=== PATIENT | female | born 2000 | race Caucasian/White ===

== ENCOUNTER 2020-09-02 20:48 | Emergency (ER) | payer BC ==
[2020-09-02] MEDS ORDERED: Sodium Chloride 0.9% 1,000 ML IV ONE (21:29)
--- NOTE | 2020-09-02 21:52 | EDM.PDOC ---
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 Patient denies any recent fevers, shakes, chills, nausea, vomiting, diarrhea, dysuria, frequency, urgency. Patient reports that with her prior she did have a miscarriage and had similar symptoms and was concerned that she might be experiencing another miscarriage. Patient denies any vaginal bleeding or vaginal discharge. Patient denies any melena or bright red blood per rectum. Review of systems: As per history of present illness and below otherwise all systems reviewed and negative. Past medical history: As per history of present illness and as reviewed below otherwise noncontributory. Surgical history: As per history of present illness and as reviewed below otherwise noncontributory. Social history: No reported history of drug or alcohol abuse. Family history: As per history of present illness and as reviewed below otherwise noncontributory. Physical exam: This patient was seen and evaluated during the 2019 SARS-CoV-2 novel coronavirus pandemic period. Community viral transmission is ongoing at time of this encounter and the emergency department is operating under pandemic response procedures. Constitutional: Patient is oriented to person, place, and time. Appears well- developed and well-nourished. No distress. HEENT: Moist mucous membranes Head: Normocephalic and atraumatic Eyes: Right eye exhibits no discharge. Left eye exhibits no discharge. No scleral icterus Neck: Normal range of motion. No tracheal deviation present. Cardiovascular: Normal rate and regular rhythm. Pulmonary: Effort normal, no respiratory distress. Abd: Soft, nondistended, no rebound/guarding, no psoas or obturator signs, no tenderness at Mcberney's point, no Goetz's sign. Pt does not present with an exam that would be consistent with an acute surgical abdomen at this time, mild tenderness to palpation left lower quadrant and suprapubic region. Musculoskeletal: Normal range of motion Neurologic: Alert and oriented to person, place and time. Skin: [place], warm and dry. Psychiatric: Normal mood and affect. Behavior is normal. Judgment and thought content normal. Nursing note and vital signs have been reviewed Pelvic: Diagnostics: CBC, CMP, Rh, ultrasound Ultrasound reveals: No intrauterine gestation seen. 2.2 cm left adnexal lesion at the margin of the left ovary. Differential diagnosis includes ectopic or exophytic corpus luteal cyst. Small amount of free fluid no evidence of hemorrhagic fluid per radiology. Beta hCG equals 49 Therapeutics: Assessment and plan: 19-year-old female presents ER today secondary to left lower quadrant abdominal pain/cramping. Patient is approximately 5 weeks by date. Patient reports that she took 3 tests in the last 24 hours and they were all positive. Patient has no current vaginal bleeding. Patient appears clinically and hemodynamically stable and does not appear to be in any acute distress. 11:33 PM: Lab reports reviewed and ultrasound reviewed by me. I have discussed the results with the patient including the possibility of an early versus viable versus miscarriage versus threatened AB versus ectopic . At this time patient is clinically hemodynamically stable and will need to follow-up as an outpatient for repeat beta hCG and ultrasounds. I have discussed with the patient the need to return immediately if she starts developing any increasing pain or discomfort in her left lower quadrant, increased dizziness, nausea, vomiting or any other new or concerning symptoms. We will assist with obtaining appointment for the patient with [facility]. Reassessment at the time of disposition demonstrates that the patient is in no acute distress. The patient has remained stable throughout the entire ED visit and is without objective evidence for acute process requiring urgent intervention or hospitalization. The patient is stable for discharge, counseling is provided as documented above, discussed symptomatic treatment and specific conditions for return. I have spoken with the patient/caregiver and discussed todays findings, in addition to providing specific details for the plan of care. Questions are answered and there is agreement with the plan. Definitive disposition and diagnosis as appropriate pending reevaluation and review of above. Lower Abdomen Pain Score (Numeric/FACES): 8 - Related Data Allergies Allergy/AdvReac Type Severity Reaction Status Date / Time No Known Allergies Allergy Verified 09/02/20 21:02 Home Meds: Home Meds . 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 Musculoskeletal History: Reports: None Neurological History: Reports: None Psychiatric History: Reports: None Endocrine/Metabolic History: Reports: None Hematologic History: Reports: None Immunologic History: Reports: None Oncologic (Cancer) History: Reports: None Dermatologic History: Reports: None - Past Surgical History Head Surgeries/Procedures: Reports: None HEENT Surgical History: Reports: None GI Surgical History: Reports: None Endocrine Surgical History: Reports: None Neurological Surgical History: Reports: None Musculoskeletal Surgical History: Reports: None Dermatological Surgical History: Reports: None Social & Family History - Family History Family Medical History: No Pertinent Family History - Tobacco Use Tobacco Use Status *Q: Never Tobacco User - Recreational Drug Use Recreational Drug Use: No ED ROS GENERAL - Review of Systems Review Of Systems: See Below ED EXAM, GENERAL - Physical Exam Exam: See Below Course - Vital Signs Last Recorded V/S: Last Vital Signs Temp 97.3 F 09/02/20 22:19 Pulse 78 09/02/20 22:19 Resp 16 09/02/20 22:19 BP 128/72 09/02/20 22:19 Pulse Ox 98 09/02/20 22:19 - Orders/Labs/Meds Labs: Laboratory Tests 09/02/20 09/02/20 09/02/20 Range/Units 21:50 21:53 21:53 WBC 10.26 (4.0-11.0) K/uL RBC 4.51 (4.30-5.90) M/uL Hgb 13.3 (12.0-16.0) g/dL Hct 39.7 (36.0-46.0) % MCV 88.0 (80.0-98.0) fL MCH 29.5 (27.0-32.0) pg MCHC 33.5 (31.0-37.0) g/dL RDW Std Deviation 42.9 (28.0-62.0) fl RDW Coeff of Brayden 13 (11.0-15.0) % Plt Count 212 (150-400) K/uL MPV 11.60 (7.40-12.00) fL Neut % (Auto) 65.4 (48.0-80.0) % Lymph % (Auto) 24.8 (16.0-40.0) % Trigg % (Auto) 8.2 (0.0-15.0) % Eos % (Auto) 1.4 (0.0-7.0) % Baso % (Auto) 0.2 (0.0-1.5) % Neut # (Auto) 6.7 H (1.4-5.7) K/uL Lymph # (Auto) 2.5 H (0.6-2.4) K/uL Trigg # (Auto) 0.8 (0.0-0.8) K/uL Eos # (Auto) 0.1 (0.0-0.7) K/uL Baso # (Auto) 0.0 (0.0-0.1) K/uL Nucleated RBC % 0.0 /100WBC Nucleated RBCs # 0 K/uL Sodium 138 (136-145) mmol/L Potassium 4.0 (3.5-5.1) mmol/L Chloride 104 (98-107) mmol/L Carbon Dioxide 24.8 (21.0-32.0) mmol/L BUN 8 (7.0-18.0) mg/dL Creatinine 0.7 (0.6-1.0) mg/dL Est Cr Clr Drug Dosing 102.24 mL/min Estimated GFR (MDRD) > 60.0 ml/min Glucose 92 (74-106) mg/dL Calcium 8.7 (8.5-10.1) mg/dL Total Bilirubin 0.3 (0.2-1.0) mg/dL AST 14 L (15-37) IU/L ALT 15 (14-63) IU/L Alkaline Phosphatase 103 (46-116) U/L Total Protein 8.0 (6.4-8.2) g/dL Albumin 4.0 (3.4-5.0) g/dL Globulin 4.0 (2.6-4.0) g/dL Albumin/Globulin Ratio 1.0 (0.9-1.6) HCG, Quant 49.0 mIU/mL Urine Color YELLOW Urine Appearance CLEAR Urine pH 5.5 (5.0-8.0) Ur Specific [place] 1.025 (1.001-1.035) Urine Protein NEGATIVE (NEGATIVE) mg/dL Urine Glucose (UA) NEGATIVE (NEGATIVE) mg/dL Urine Ketones NEGATIVE (NEGATIVE) mg/dL Urine Occult Blood NEGATIVE (NEGATIVE) Urine Nitrite NEGATIVE (NEGATIVE) Urine Bilirubin NEGATIVE (NEGATIVE) Urine Urobilinogen 0.2 (<2.0) EU/dL Ur Leukocyte Esterase NEGATIVE (NEGATIVE) Urine RBC 0-2 (0-2/HPF) Urine WBC 1-3 (0-5/HPF) Ur Epithelial Cells MODERATE (NONE-FEW) Urine Bacteria FEW (NEGATIVE) Urine Mucus LIGHT (NONE-MOD) Blood Type 09/02/20 Range/Units 21:53 WBC (4.0-11.0) K/uL RBC (4.30-5.90) M/uL Hgb (12.0-16.0) g/dL Hct (36.0-46.0) % MCV (80.0-98.0) fL MCH (27.0-32.0) pg MCHC (31.0-37.0) g/dL RDW Std Deviation (28.0-62.0) fl RDW Coeff of Brayden (11.0-15.0) % Plt Count (150-400) K/uL MPV (7.40-12.00) fL Neut % (Auto) (48.0-80.0) % Lymph % (Auto) (16.0-40.0) % Trigg % (Auto) (0.0-15.0) % Eos % (Auto) (0.0-7.0) % Baso % (Auto) (0.0-1.5) % Neut # (Auto) (1.4-5.7) K/uL Lymph # (Auto) (0.6-2.4) K/uL Trigg # (Auto) (0.0-0.8) K/uL Eos # (Auto) (0.0-0.7) K/uL Baso # (Auto) (0.0-0.1) K/uL Nucleated RBC % /100WBC Nucleated RBCs # K/uL Sodium (136-145) mmol/L Potassium (3.5-5.1) mmol/L Chloride (98-107) mmol/L Carbon Dioxide (21.0-32.0) mmol/L BUN (7.0-18.0) mg/dL Creatinine (0.6-1.0) mg/dL Est Cr Clr Drug Dosing mL/min Estimated GFR (MDRD) ml/min Glucose (74-106) mg/dL Calcium (8.5-10.1) mg/dL Total Bilirubin (0.2-1.0) mg/dL AST (15-37) IU/L ALT (14-63) IU/L Alkaline Phosphatase (46-116) U/L Total Protein (6.4-8.2) g/dL Albumin (3.4-5.0) g/dL Globulin (2.6-4.0) g/dL Albumin/Globulin Ratio (0.9-1.6) HCG, Quant mIU/mL Urine Color Urine Appearance Urine pH (5.0-8.0) Ur Specific [place] (1.001-1.035) Urine Protein (NEGATIVE) mg/dL Urine Glucose (UA) (NEGATIVE) mg/dL Urine Ketones (NEGATIVE) mg/dL Urine Occult Blood (NEGATIVE) Urine Nitrite (NEGATIVE) Urine Bilirubin (NEGATIVE) Urine Urobilinogen (<2.0) EU/dL Ur Leukocyte Esterase (NEGATIVE) Urine RBC (0-2/HPF) Urine WBC (0-5/HPF) Ur Epithelial Cells (NONE-FEW) Urine Bacteria (NEGATIVE) Urine Mucus (NONE-MOD) Blood Type O POSITIVE Meds: Medications Discontinued Medications Generic Name Dose Route Start Last Admin Trade Name Freq PRN Reason Stop Dose Admin Sodium Chloride 1,000 mls @ 999 mls/hr 09/02/20 21:29 09/02/20 21:54 Normal Saline IV 09/02/20 22:29 999 mls/hr .Bolus ONE Administration Departure - Departure Time of Disposition: 23:34 Disposition: Home, Self-Care 01 Condition: Good Clinical Impression: Threatened , Abdominal pain affecting - Discharge Information Instructions: Threatened Miscarriage Referrals: PCP,None [Primary Care Provider] - Forms: ED Department Discharge Additional Instructions: You were seen and evaluated in the ER today secondary to pain in your left lower abdomen with your . Your beta hCG today is 49 which is extremely low and much lower than I would anticipate with your last menstrual period dates. Your ultrasound was somewhat nondiagnostic. They did not see a baby inside your uterus and there was a concern of a 2.2 cm lesion in your left adnexa next to the left ovary. This could be an ovarian cyst however there is a possibility this could be an early ectopic as well. As we discussed, you will need to have close follow-up with the MANAGEMENT SUPERVISOR doctor so that they can repeat your hormone level and ultrasound and exam as needed. Please return to the ER if you start developing any increasing pain to your left lower abdomen, dizziness, shortness of breath, or any other new or concerning symptoms immediately. Our nurses will assist with trying to help you obtain an appointment with the OB clinics. [facility] [address] [place] [id number] [address] The following information is given to patients seen in the emergency department who are being discharged to home. This information is to outline your options for follow-up care. We provide all patients seen in our emergency department with a follow-up referral. The need for follow-up, as well as the timing and circumstances, are variable depending upon the specifics of your emergency department visit. If you don't have a primary care physician on staff, we will provide you with a referral. We always advise you to contact your personal physician following an emergency department visit to inform them of the circumstance of the visit and for follow-up with them and/or the need for any referrals to a consulting specialist. The emergency department will also refer you to a specialist when appropriate. This referral assures that you have the opportunity for follow-up care with a specialist. All of these measure are taken in an effort to provide you with optimal care, which includes your follow-up. Under all circumstances we always encourage you to contact your private physician who remains a resource for coordinating your care. When calling for follow-up care, please make the office aware that this follow-up is from your recent emergency room visit. If for any reason you are refused follow-up, please contact the [facility] Emergency Department at and asked to speak to the emergency department charge nurse. [facility] [address] [place] [id number] [facility] [address] [place] [address] Sepsis Event Note (ED) - Evaluation Sepsis Screening Result: No Definite Risk - Focused Exam Vital Signs: Vital Signs Temp Pulse Resp BP Pulse Ox 09/02/20 22:19 97.3 F 78 16 128/72 98 09/02/20 21:03 97.4 F 68 17 126/82 99
[2020-09-02 22:47] LABS: BLOOD UREA NITROGEN,BUN 8 mg/dL (7.0-18.0); CARBON DIOXIDE,CO2 24.8 mmol/L (21.0-32.0); CHLORIDE,CL 104 mmol/L (98-107); GLUCOSE RANDOM 92 mg/dL (74-106); SODIUM,NA 138 mmol/L (136-145)
--- NOTE | 2020-09-02 23:07 | US ---
INDICATION: Left abdominal pain, . TECHNIQUE: Realtime grayscale and color Doppler images were obtained transvaginally with static images saved for review. COMPARISON: None FINDINGS: Uterus: 7.7 x 4.0 x 5.1 cm. Normal echotexture of the myometrium. No masses. Endometrium: Endometrial thickness measures 13 mm. No intrauterine gestational sac seen. Right ovary: 2.3 x 1.5 x 3.3 centimeters with normal blood flow. No focal lesion. Left ovary: 3.4 x 2.7 x 3.9 centimeters. Normal left ovarian blood flow. At the margin of the left ovary there is a mildly heterogeneous lesion measuring 2.2 x 1.8 x 2.1 centimeters with blood flow noted along its margin. Cul-de-sac: Small free fluid. IMPRESSION: No intrauterine gestation seen. 2.2 centimeter left adnexal lesion at the margin of the left ovary. Differential diagnosis includes ectopic or exophytic corpus luteum. Small free fluid. Discussed with Dr. Ordonez at 2305 on 09/02/2020 Dictated by Ervin Freitas MD @ Sep 02 2020 10:56PM Signed by Dr. Ervin Freitas @ Sep 02 2020 11:06PM
== END 2020-09-03 00:27 | disposition home or self-care (01) ==
LOC: MW.ED 20:48
DX: O20.0 Threatened abortion (principal); Z3A.01 Less than 8 weeks gestation of pregnancy
CPT/HCPCS: 36415; 76801; 80053; 81001; 84702; 85025; 86900; 86901; 99284; J7030

== ENCOUNTER 2020-12-06 21:28 | Emergency (ER) | payer BC ==
--- NOTE | 2020-12-06 22:40 | EDM.PDOC ---
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 Patient she has not felt her baby move in the past few days and was told to come in for checkup. She denies any vaginal bleeding or discharge or any abdominal cramping. She still tolerating p.o. Is her first . Patient has no other complaints other than wanting to check to make sure baby is okay. - Related Data Allergies Allergy/AdvReac Type Severity Reaction Status Date / Time No Known Allergies Allergy Verified 12/06/20 22:18 Home Meds: Home Meds . 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 Musculoskeletal History: Reports: None Neurological History: Reports: None Psychiatric History: Reports: None Endocrine/Metabolic History: Reports: None Hematologic History: Reports: None Immunologic History: Reports: None Oncologic (Cancer) History: Reports: None Dermatologic History: Reports: None - Infectious Disease History Infectious Disease History: Reports: None - Past Surgical History Head Surgeries/Procedures: Reports: None HEENT Surgical History: Reports: None GI Surgical History: Reports: None Endocrine Surgical History: Reports: None Neurological Surgical History: Reports: None Musculoskeletal Surgical History: Reports: None Dermatological Surgical History: Reports: None Social & Family History - Family History Family Medical History: No Pertinent Family History - Tobacco Use Tobacco Use Status *Q: Never Tobacco User - Caffeine Use Caffeine Use: Reports: Coffee - Recreational Drug Use Recreational Drug Use: No ED ROS GENERAL - Review of Systems Review Of Systems: See Below Constitutional: Reports: No Symptoms HEENT: Reports: No Symptoms Respiratory: Reports: No Symptoms Cardiovascular: Reports: No Symptoms Endocrine: Reports: No Symptoms GI/Abdominal: Reports: No Symptoms : Reports: No Symptoms Musculoskeletal: Reports: No Symptoms Skin: Reports: No Symptoms Neurological: Reports: No Symptoms Psychiatric: Reports: No Symptoms Hematologic/Lymphatic: Reports: No Symptoms Immunologic: Reports: No Symptoms ED EXAM - Physical Exam Exam: See Below Exam Limited By: No Limitations General Appearance: Alert, WD/WN, No Apparent Distress Head: Atraumatic Neck: Normal Inspection, Supple Respiratory/Chest: No Respiratory Distress, Lungs Clear, Normal Breath Sounds Cardiovascular: Normal Peripheral Pulses, Regular Rate, Rhythm GI/Abdominal Exam: Normal Bowel Sounds, Soft, Non-Tender Neurological: Alert, Oriented Course - Vital Signs Last Recorded V/S: Last Vital Signs Temp 97.3 F 12/06/20 22:18 Pulse 75 12/06/20 22:18 Resp 16 12/06/20 22:18 BP 102/61 12/06/20 22:18 Pulse Ox 100 12/06/20 22:18 - Orders/Labs/Meds Labs: Laboratory Tests 12/06/20 12/06/20 Range/Units 22:47 22:47 WBC 10.10 (4.0-11.0) K/uL RBC 3.66 L (4.30-5.90) M/uL Hgb 11.1 L (12.0-16.0) g/dL Hct 32.2 L (36.0-46.0) % MCV 88.0 (80.0-98.0) fL MCH 30.3 (27.0-32.0) pg MCHC 34.5 (31.0-37.0) g/dL RDW Std Deviation 44.7 (28.0-62.0) fl RDW Coeff of Brayden 14 (11.0-15.0) % Plt Count 203 (150-400) K/uL MPV 10.70 (7.40-12.00) fL Neut % (Auto) 67.3 (48.0-80.0) % Lymph % (Auto) 23.0 (16.0-40.0) % [place] % (Auto) 8.9 (0.0-15.0) % Eos % (Auto) 0.7 (0.0-7.0) % Baso % (Auto) 0.1 (0.0-1.5) % Neut # (Auto) 6.8 H (1.4-5.7) K/uL Lymph # (Auto) 2.3 (0.6-2.4) K/uL [place] # (Auto) 0.9 H (0.0-0.8) K/uL Eos # (Auto) 0.1 (0.0-0.7) K/uL Baso # (Auto) 0.0 (0.0-0.1) K/uL Nucleated RBC % 0.0 /100WBC Nucleated RBCs # 0 K/uL Sodium 136 (136-145) mmol/L Potassium 3.7 (3.5-5.1) mmol/L Chloride 103 (98-107) mmol/L Carbon Dioxide 24.0 (21.0-32.0) mmol/L BUN 6 L (7.0-18.0) mg/dL Creatinine 0.5 L (0.6-1.0) mg/dL Est Cr Clr Drug Dosing 141.95 mL/min Estimated GFR (MDRD) > 60.0 ml/min Glucose 86 (74-106) mg/dL Calcium 8.6 (8.5-10.1) mg/dL HCG, Quant 20734.0 mIU/mL - Re-Assessments/Exams Free Text/Narrative Re-Assessment/Exam: 12/06/20 23:36 We will do a bedside sono and and so movement as well as heart rate. Patient beta is 27,000. Patient will be discharged home to follow-up [facility] [employer] [facility] as outpatient. Departure - Departure Time of Disposition: 23:37 Disposition: Home, Self-Care 01 Condition: Good Clinical Impression: , normal first - Discharge Information *PRESCRIPTION DRUG MONITORING PROGRAM REVIEWED*: Not Applicable *COPY OF PRESCRIPTION DRUG MONITORING REPORT IN PATIENT KALI: Not Applicable Instructions: Preparing for Referrals: Xiomara Masters MD [Primary Care Provider] - Forms: ED Department Discharge Additional Instructions: The following information is given to patients seen in the emergency department who are being discharged to home. This information is to outline your options for follow-up care. We provide all patients seen in our emergency department with a follow-up referral. The need for follow-up, as well as the timing and circumstances, are variable depending upon the specifics of your emergency department visit. If you don't have a primary care physician on staff, we will provide you with a referral. We always advise you to contact your personal physician following an emergency department visit to inform them of the circumstance of the visit and for follow-up with them and/or the need for any referrals to a consulting specialist. The emergency department will also refer you to a specialist when appropriate. This referral assures that you have the opportunity for follow-up care with a specialist. All of these measure are taken in an effort to provide you with optimal care, which includes your follow-up. Under all circumstances we always encourage you to contact your private physician who remains a resource for coordinating your care. When calling for follow-up care, please make the office aware that this follow-up is from your recent emergency room visit. If for any reason you are refused follow-up, please contact the [facility] Emergency Department at and asked to speak to the emergency department charge nurse. Please follow up with your primary care physician. If you do not have a primary care physician, see below: [facility] [address] [place] [id number] [facility] [address] [place] [id number] You are seen today for evaluation of your . We were able to do a bedside sono and saw movement on the sonogram. We also did your labs and your beta hCG is increasing appropriately. You or stable for discharge to follow-up with [employer] [employer] [facility]. Sepsis Event Note (ED) - Evaluation Sepsis Screening Result: No Definite Risk - Focused Exam Vital Signs: Vital Signs Temp Pulse Resp BP Pulse Ox 12/06/20 22:18 97.3 F 75 16 102/61 100 - Assessment/Plan Plan: Patient is a 20-year-old female who presents today for evaluation after not feeling her baby move for the past 3 days. She states she is 17 weeks. We will obtain a beta-hCG do a bedside sono and reassess patient.
[2020-12-06 23:34] LABS: BLOOD UREA NITROGEN,BUN 6 mg/dL (7.0-18.0); CHLORIDE,CL 103 mmol/L (98-107); GLUCOSE RANDOM 86 mg/dL (74-106); POTASSIUM,K 3.7 mmol/L (3.5-5.1); SODIUM,NA 136 mmol/L (136-145)
== END 2020-12-06 23:50 | disposition home or self-care (01) ==
LOC: MW.ED 21:28
DX: O99.891 Other specified diseases and conditions complicating pregnancy (principal); Z3A.17 17 weeks gestation of pregnancy
CPT/HCPCS: 36415; 80048; 84702; 85025; 99284-25

== ENCOUNTER 2021-05-07 03:24 | Inpatient (IN) | payer SELFPAY ==
[2021-05-07] MEDS: Lactated Ringers 1,000 ML IV SCH ×2 (12:44→17:26)
[2021-05-07] MEDS ORDERED: Misoprostol 25 MCG (1/4 of 100 MCG) Tab ONE (13:46)
[2021-05-07] MEDS ORDERED: Misoprostol 25 MCG (1/4 of 100 MCG) Tab PO ONE (14:02)
[2021-05-07] MEDS ORDERED: Misoprostol 50 MCG (1/2 of 100 MCG) Tab VAG ONE ×2 (14:02→14:13)
[2021-05-07] MEDS ORDERED: Sodium Chloride 0.9% 20 ML SDV IV PRN (14:17)
[2021-05-07] MEDS ORDERED: Carboprost Tromethamine 250 MCG/1 ML Amp IM PRN (14:17)
[2021-05-07] MEDS ORDERED: Misoprostol 200 MCG Tab PO PRN (14:17)
[2021-05-07] MEDS ORDERED: Sodium Chloride 0.9% 2.5 ML Syringe FLUSH PRN (14:17)
[2021-05-07] MEDS ORDERED: Water For Irrigation,Sterile 1,000 ML Container IRR PRN (14:17)
[2021-05-07] MEDS ORDERED: Nalbuphine 10 MG/1 ML Vial IVPUSH PRN (14:17)
[2021-05-07] MEDS ORDERED: Lidocaine 1% 50 ML MDV INJECT PRN (14:17)
[2021-05-07] MEDS ORDERED: Methylergonovine 0.2 MG/1 ML Amp IM PRN (14:17)
[2021-05-07] MEDS ORDERED: Butorphanol 1 MG/ML SDV IVPUSH PRN (14:17)
[2021-05-07] MEDS ORDERED: Tranexamic Acid 1,000 MG in Sodium Chloride 0.9% 100 ML IV PRN (14:17)
[2021-05-07] MEDS ORDERED: Ondansetron 4 MG/2 ML SDV IVPUSH PRN (14:17)
[2021-05-07] MEDS ORDERED: Sodium Chloride 0.9% 10 ML Syringe FLUSH PRN (14:17)
[2021-05-07] MEDS ORDERED: Terbutaline 1 MG/ML SDV SUBCUT PRN (14:23)
[2021-05-07] MEDS ORDERED: Oxytocin/0.9 % Sodium Chloride 30 UNIT/500 ML BAG IV SCH ×2 (14:30)
--- NOTE | 2021-05-07 17:46 | PCM.LDHP ---
L&D History of Present Illness - General Date of Service: 05/07/21 Admit Problem/Dx: Patient Status Order with Admit Dx/Problem 05/07/21 12:00 Patient Status [ADT] Routine Admission Diagnosis/Problem Admission Diagnosis/Problem Source of Information: Patient History Limitations: Reports: No Limitations - History of Present Illness Introduction:: 20yo @39w0d [place] admitted for IOL. uncomplicated. Denies VB, LOF or Ctx. Good FM - Related Data Allergies/Adverse Reactions: Allergies Allergy/AdvReac Type Severity Reaction Status Date / Time shellfish derived Allergy Severe Airway Verified 05/07/21 14:22 Tightness Home Medications: Home Meds . 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 Musculoskeletal History: Reports: None Neurological History: Reports: None Psychiatric History: Reports: Anxiety, Depression Endocrine/Metabolic History: Reports: None Hematologic History: Reports: None Immunologic History: Reports: None Oncologic (Cancer) History: Reports: None Dermatologic History: Reports: None - Infectious Disease History Infectious Disease History: Reports: None - Past Surgical History Head Surgeries/Procedures: Reports: None HEENT Surgical History: Reports: None GI Surgical History: Reports: None Endocrine Surgical History: Reports: None Neurological Surgical History: Reports: None Musculoskeletal Surgical History: Reports: None Dermatological Surgical History: Reports: None Social & Family History - Family History Family Medical History: No Pertinent Family History - Tobacco Use Tobacco Use Status *Q: Never Tobacco User Second Hand Smoke Exposure: No - Caffeine Use Caffeine Use: Reports: Soda - Recreational Drug Use Recreational Drug Use: No H&P Review of Systems - Review of Systems: Review Of Systems: See Below General: Reports: No Symptoms HEENT: Reports: No Symptoms Pulmonary: Reports: No Symptoms Cardiovascular: Reports: No Symptoms Gastrointestinal: Reports: No Symptoms Genitourinary: Reports: No Symptoms Musculoskeletal: Reports: No Symptoms Skin: Reports: No Symptoms Psychiatric: Reports: No Symptoms Neurological: Reports: No Symptoms Hematologic/Lymphatic: Reports: No Symptoms Immunologic: Reports: No Symptoms L&D Exam - Exam Exam: See Below - Vital Signs Weight: 66.678 kg - OB Specific Contraction Intensity: Irritability Movement: Active Heart Tones: Present Presentation: Vertex Estimated Weight: 7 - Beaver Score Beaver Score Cervix Position: Midposition - Exam General: Alert, Oriented Lungs: Normal Respiratory Effort Cardiovascular: Regular Rate GI/Abdominal Exam: Soft, Non-Tender Extremities: Normal Inspection Psychiatric: Alert, Normal Affect, Normal Mood - Problem List (1) Term SNOMED Code(s): 08791395 ICD Code: Z34.90 - ENCNTR FOR SUPRVSN OF NORMAL , UNSP, UNSP TRIMESTER Status: Acute Current Visit: Yes Problem List Initiated/Reviewed/Updated: Yes Orders Last 24hrs: Active Orders 24 hr Category Date Time Status Patient Status [ADT] Routine ADT 05/07/21 12:00 Active Communication Order [RC] ASDIRECTED Care 05/07/21 14:23 Active Communication Order [RC] ASDIRECTED Care 05/07/21 14:23 Active Communication Order [RC] ASDIRECTED Care 05/07/21 14:23 Active May Shower [RC] ASDIRECTED Care 05/07/21 14:17 Active Notify Provider [RC] PRN Care 05/07/21 14:17 Active Notify Provider [RC] PRN Care 05/07/21 14:23 Active Notify Provider [RC] PRN Care 05/07/21 14:23 Active Notify Provider [RC] STAT Care 05/07/21 14:23 Active Up ad Honey [RC] ASDIRECTED Care 05/07/21 14:17 Active Vital Signs [RC] PER UNIT ROUTINE Care 05/07/21 14:17 Active CBC W/O DIFF,HEMOGRAM [HEME] Routine Lab 05/07/21 14:17 Ordered RPR (SYPHILIS SERO) W/ RFLX [REF] Routine Lab 05/07/21 14:17 Ordered TYPE AND SCREEN [BBK] Routine Lab 05/07/21 14:17 Ordered Butorphanol [Stadol] Med 05/07/21 14:17 Active 1 mg IVPUSH Q1H PRN Carboprost Tromethamine [Hemabate DS] Med 05/07/21 14:17 Active 250 mcg IM ASDIRECTED PRN Lactated Ringers [Ringers, Lactated] 1,000 ml Med 05/07/21 14:30 Active IV ASDIRECTED Lidocaine 1% [Xylocaine 1%] Med 05/07/21 14:17 Active 50 ml INJECT ONETIME PRN Methylergonovine [Methergine] Med 05/07/21 14:17 Active 0.2 mg IM ASDIRECTED PRN Nalbuphine [Nubain] Med 05/07/21 14:17 Active 10 mg IVPUSH Q1H PRN Ondansetron [Zofran] Med 05/07/21 14:17 Active 4 mg IVPUSH Q4H PRN Oxytocin/0.9 % Sodium Chloride [Oxytocin 30 Unit in NS Med 05/07/21 14:30 Active 0.9% 500 ML Premix] 30 unit in 500 ml IV TITRATE Oxytocin/0.9 % Sodium Chloride [Oxytocin 30 Unit in NS Med 05/07/21 14:30 Active 0.9% 500 ML Premix] 30 unit in 500 ml IV TITRATE Sodium Chloride 0.9% [Normal Saline] Med 05/07/21 14:17 Active 10 ml IV ASDIRECTED PRN Sodium Chloride 0.9% [Saline Flush] Med 05/07/21 14:17 Active 10 ml FLUSH ASDIRECTED PRN Sodium Chloride 0.9% [Saline Flush] Med 05/07/21 14:17 Active 2.5 ml FLUSH ASDIRECTED PRN Terbutaline [Brethine] Med 05/07/21 14:23 Active 0.25 mg SUBCUT ASDIRECTED PRN Tranexamic Acid [Cyklokapron] 1,000 mg Med 05/07/21 14:17 Active Sodium Chloride 0.9% [Normal Saline] 100 ml IV ONETIME Water For Irrigation,Sterile [Sterile Water for Med 05/07/21 14:17 Active Irrigation] 1,000 ml IRR ASDIRECTED PRN miSOPROStoL [Cytotec] Med 05/07/21 14:17 Active 200 mcg PO ONETIME PRN miSOPROStoL [Cytotec] Med 05/07/21 18:00 Active 25 mcg PO Q4H PRN miSOPROStoL [Cytotec] Med 05/07/21 18:00 Active 25 mcg VAG Q4H PRN Scalp Electrode [WOMSER] Per Unit Routine Oth 05/07/21 14:17 Ordered Medication Administration Instruction [OM.PC] Q3H Oth 05/07/21 14:30 Ordered Peripheral IV Insertion Adult [OM.PC] Routine Oth 05/07/21 14:17 Ordered Resuscitation Status Routine Resus Stat 05/07/21 14:17 Ordered Medication Orders Butorphanol Tartrate (Butorphanol 1 Mg/Ml Sdv) 1 mg IVPUSH Q1H PRN PRN Reason: Pain (severe 7-10) Carboprost Tromethamine (Carboprost Tromethamine 250 Mcg/1 Ml Amp) 250 mcg IM ASDIRECTED PRN PRN Reason: Post Hemorrhage Lactated Ringer's (Ringers, Lactated) 1,000 mls @ 150 mls/hr IV ASDIRECTED YASSINE Last Admin: 05/07/21 17:26 Dose: 150 mls/hr Documented by: Infusion: 05/07/21 17:26 Dose: 150 mls/hr Documented by: Admin: 05/07/21 12:44 Dose: 150 mls/hr Documented by: LYLY Oxytocin/Sodium Chloride (Oxytocin 30 Unit In Ns 0.9% 500 Ml Premix) 30 unit in 500 mls @ 500 mls/hr IV TITRATE YASSINE Tranexamic Acid 1,000 mg/ (Sodium Chloride) 110 mls @ 660 mls/hr IV ONETIME PRN PRN Reason: Bleeding Oxytocin/Sodium Chloride (Oxytocin 30 Unit In Ns 0.9% 500 Ml Premix) 30 unit in 500 mls @ 2 mls/hr IV TITRATE YASSINE; Protocol Lidocaine HCl (Lidocaine 1% 50 Ml Mdv) 50 ml INJECT ONETIME PRN PRN Reason: Laceration repair Methylergonovine Maleate (Methylergonovine 0.2 Mg/1 Ml Amp) 0.2 mg IM ASDIRECTED PRN PRN Reason: Post Hemorrhage Misoprostol (Misoprostol 200 Mcg Tab) 200 mcg PO ONETIME PRN PRN Reason: Post Hemorrhage Misoprostol (Misoprostol 25 Mcg (1/4 Of 100 Mcg) Tab) 25 mcg VAG Q4H PRN PRN Reason: Cervical Ripening Misoprostol (Misoprostol 25 Mcg (1/4 Of 100 Mcg) Tab) 25 mcg PO Q4H PRN PRN Reason: Cervical Ripening Nalbuphine HCl (Nalbuphine 10 Mg/1 Ml Vial) 10 mg IVPUSH Q1H PRN PRN Reason: Pain (severe 7-10) Ondansetron HCl (Ondansetron 4 Mg/2 Ml Sdv) 4 mg IVPUSH Q4H PRN PRN Reason: Nausea/Vomiting Sodium Chloride (Sodium Chloride 0.9% 10 Ml Syringe) 10 ml FLUSH ASDIRECTED PRN PRN Reason: Keep Vein Open Sodium Chloride (Sodium Chloride 0.9% 2.5 Ml Syringe) 2.5 ml FLUSH ASDIRECTED PRN PRN Reason: Keep Vein Open Sodium Chloride (Sodium Chloride 0.9% 20 Ml Sdv) 10 ml IV ASDIRECTED PRN PRN Reason: IV Use Sterile Water (Water For Irrigation,Sterile 1,000 Ml Container) 1,000 ml IRR ASDIRECTED PRN PRN Reason: delivery Terbutaline Sulfate (Terbutaline 1 Mg/Ml Sdv) 0.25 mg SUBCUT ASDIRECTED PRN PRN Reason: Tacysystole Assessment/Plan Comment:: 20yo @39w0d [place] admitted for IOL. Reactive strip. Beaver score <4 (per nurse SVE) P: Cytotec to pitocin PRN. Discussed use of labor induction medications, including off-label use Epidural PRN
[2021-05-07] MEDS ORDERED: Misoprostol 25 MCG (1/4 of 100 MCG) Tab VAG PRN (18:00)
[2021-05-07] MEDS ORDERED: Misoprostol 25 MCG (1/4 of 100 MCG) Tab PO PRN (18:00)
[2021-05-07] MEDS ORDERED: Promethazine 25 MG/ML SDV IM ONE (23:35)
[2021-05-08] MEDS: Lactated Ringers 1,000 ML IV SCH (00:03)
[2021-05-08] MEDS ORDERED: Lidocaine 1% 20 ML MDV ONE (03:32)
[2021-05-08] MEDS ORDERED: Benzocaine/Menthol 20%-0.5% Spray 78 GM Cannister TOP PRN (03:49)
[2021-05-08] MEDS ORDERED: Ibuprofen 400 MG Tab PO PRN (03:49)
[2021-05-08] MEDS ORDERED: Bisacodyl 10 MG Supp RECTAL PRN (03:49)
[2021-05-08] MEDS ORDERED: oxyCODONE 5 MG Tab PO PRN (03:49)
[2021-05-08] MEDS ORDERED: Acetaminophen 500 MG Tab PO PRN ×2 (03:49)
[2021-05-08] MEDS ORDERED: Lanolin 100% Cream 7 GM Tube TOP PRN (03:49)
[2021-05-08] MEDS ORDERED: Witch Hazel Medicated Pads 40/Jar TOP PRN (03:49)
--- NOTE | 2021-05-08 03:57 | PCM.DEL ---
L & D Note - General Info Date of Service: 05/08/21 Mother's Due Date: 05/14/21 - Delivery Note Labor: Augmented by Oxytocin Cervical Ripening Method: Misoprostil, Oxytocin Delivery Outcome: Livebirth Delivery Method: Spontaneous Vaginal Delivery-Single Presentation: Vertex Nuchal Cord: None Anesthesia Type: None Laceration: 1st Degree Suture type: Other (Patient declined repair of the laceration) Cord: 3 Vessels Estimated Blood Loss: 350 Resuscitation Needed: No Score 1 min: 4 Score 5 min: 8 Delivery Comments (Free Text/Narrative):: of a live male, 8lb 3oz and Apgars 4/8. Delivered SOCO, no nuchal cord, No meconium. Vertex and body delivered without difficulty. Cord clamped and cut. Baby handed to staff for resuscitation. Placenta delivered spontaneously, intact. Fundus firm, minimal bleeding. Placenta appears intact with 3 vessel cord. Perineum and vagina inspected, 1st degree perineal laceration, but patient declined repair. EBL 350cc. Hemostatic Patient tolerated procedure well, recovering in LDR. by her side Induction Criteria - Beaver Score Beaver Score Dilation: Closed Beaver Score Effacement: 0-30% Beaver Score Infant's Station: -3 Beaver Score Consistency: Firm Beaver Score Cervix Position: Posterior Beaver Score Total: 0 Beaver Score Presenting Part: Reports: Cephalic - Induction Gestational Age >/= 39 wks: Yes Estimated Pelvis: Reports: Adequate Reassuring Monitoring Strip: Yes Absence of Tachy Systole: Yes - Augmentation Estimated Pelvis: Reports: Adequate Weight Estimated:: Reports: AGA Estimated Weight if LGA: 7.5 kg Reassuring Monitoring Strip: Yes Absence of Tachy Systole: Yes - General Info Date of Service: 05/08/21 Admission Dx/Problem (Free Text): Patient Status Order with Admit Dx/Problem 05/07/21 12:00 Patient Status [ADT] Routine Admission Diagnosis/Problem Admission Diagnosis/Problem Functional Status: Reports: Pain Controlled - Review of Systems General: Reports: No Symptoms HEENT: Reports: No Symptoms Pulmonary: Reports: No Symptoms Cardiovascular: Reports: No Symptoms Gastrointestinal: Reports: No Symptoms Genitourinary: Reports: No Symptoms Musculoskeletal: Reports: No Symptoms Skin: Reports: No Symptoms Neurological: Reports: No Symptoms Psychiatric: Reports: No Symptoms - Patient Data Weight - Most Recent: 66.678 kg Lab Results Last 24 Hours: Laboratory Results - last 24 hr 05/07/21 05/07/21 Range/Units 12:30 12:30 WBC 9.30 (4.0-11.0) K/uL RBC 3.57 L (4.30-5.90) M/uL Hgb 9.1 L (12.0-16.0) g/dL Hct 28.2 L (36.0-46.0) % MCV 79.0 L (80.0-98.0) fL MCH 25.5 L (27.0-32.0) pg MCHC 32.3 (31.0-37.0) g/dL RDW Std Deviation 41.2 (28.0-62.0) fl RDW Coeff of Brayden 14 (11.0-15.0) % Plt Count 169 (150-400) K/uL MPV 12.30 H (7.40-12.00) fL Nucleated RBC % 0.0 /100WBC Nucleated RBCs # 0 K/uL Blood Type O POSITIVE Antibody Screen NEGATIVE Med Orders - Current: Current Medications Butorphanol Tartrate (Butorphanol 1 Mg/Ml Sdv) 1 mg IVPUSH Q1H PRN PRN Reason: Pain (severe 7-10) Last Admin: 05/07/21 23:49 Dose: 1 mg Documented by: Carboprost Tromethamine (Carboprost Tromethamine 250 Mcg/1 Ml Amp) 250 mcg IM ASDIRECTED PRN PRN Reason: Post Hemorrhage Lactated Ringer's (Ringers, Lactated) 1,000 mls @ 150 mls/hr IV ASDIRECTED YASSINE Last Admin: 05/08/21 00:03 Dose: 150 mls/hr Documented by: Oxytocin/Sodium Chloride (Oxytocin 30 Unit In Ns 0.9% 500 Ml Premix) 30 unit in 500 mls @ 500 mls/hr IV TITRATE YASSINE Tranexamic Acid 1,000 mg/ (Sodium Chloride) 110 mls @ 660 mls/hr IV ONETIME PRN PRN Reason: Bleeding Oxytocin/Sodium Chloride (Oxytocin 30 Unit In Ns 0.9% 500 Ml Premix) 30 unit in 500 mls @ 2 mls/hr IV TITRATE YASSINE; Protocol Last Admin: 05/07/21 19:21 Dose: 2 munits/min, 2 mls/hr Documented by: Lidocaine HCl (Lidocaine 1% 50 Ml Mdv) 50 ml INJECT ONETIME PRN PRN Reason: Laceration repair Methylergonovine Maleate (Methylergonovine 0.2 Mg/1 Ml Amp) 0.2 mg IM ASDIRECTED PRN PRN Reason: Post Hemorrhage Misoprostol (Misoprostol 200 Mcg Tab) 200 mcg PO ONETIME PRN PRN Reason: Post Hemorrhage Misoprostol (Misoprostol 25 Mcg (1/4 Of 100 Mcg) Tab) 25 mcg VAG Q4H PRN PRN Reason: Cervical Ripening Misoprostol (Misoprostol 25 Mcg (1/4 Of 100 Mcg) Tab) 25 mcg PO Q4H PRN PRN Reason: Cervical Ripening Nalbuphine HCl (Nalbuphine 10 Mg/1 Ml Vial) 10 mg IVPUSH Q1H PRN PRN Reason: Pain (severe 7-10) Ondansetron HCl (Ondansetron 4 Mg/2 Ml Sdv) 4 mg IVPUSH Q4H PRN PRN Reason: Nausea/Vomiting Sodium Chloride (Sodium Chloride 0.9% 10 Ml Syringe) 10 ml FLUSH ASDIRECTED PRN PRN Reason: Keep Vein Open Sodium Chloride (Sodium Chloride 0.9% 2.5 Ml Syringe) 2.5 ml FLUSH ASDIRECTED PRN PRN Reason: Keep Vein Open Sodium Chloride (Sodium Chloride 0.9% 20 Ml Sdv) 10 ml IV ASDIRECTED PRN PRN Reason: IV Use Sterile Water (Water For Irrigation,Sterile 1,000 Ml Container) 1,000 ml IRR ASDIRECTED PRN PRN Reason: delivery Terbutaline Sulfate (Terbutaline 1 Mg/Ml Sdv) 0.25 mg SUBCUT ASDIRECTED PRN PRN Reason: Tacysystole Discontinued Medications Lidocaine HCl (Lidocaine 1% 20 Ml Mdv) Confirm Administered Dose 20 ml .ROUTE .STK-MED ONE Stop: 05/08/21 03:33 Misoprostol (Misoprostol 25 Mcg (1/4 Of 100 Mcg) Tab) Confirm Administered Dose 50 mcg .ROUTE .STK-MED ONE Stop: 05/07/21 13:47 Last Admin: 05/07/21 14:20 Dose: 50 mcg Documented by: Misoprostol (Misoprostol 25 Mcg (1/4 Of 100 Mcg) Tab) 25 mcg PO ONETIME ONE Stop: 05/07/21 14:03 Last Admin: 05/07/21 14:04 Dose: 25 mcg Documented by: Misoprostol (Misoprostol 50 Mcg (1/2 Of 100 Mcg) Tab) 25 mcg VAG ONETIME ONE Stop: 05/07/21 14:03 Last Admin: 05/07/21 16:36 Dose: Not Given Documented by: Misoprostol (Misoprostol 50 Mcg (1/2 Of 100 Mcg) Tab) 25 mcg VAG ONETIME ONE Stop: 05/07/21 14:14 Last Admin: 05/07/21 14:00 Dose: 25 mcg Documented by: Promethazine HCl (Promethazine 25 Mg/Ml Sdv) 25 mg IM ONETIME ONE Stop: 05/07/21 23:36 - Exam General: Alert, Oriented Lungs: Normal Respiratory Effort Cardiovascular: Regular Rate Extremities: Normal Inspection Psy/Mental Status: Alert, Normal Affect, Normal Mood - Problem List & Annotations (1) Term SNOMED Code(s): 88392523 Code(s): Z34.90 - ENCNTR FOR SUPRVSN OF NORMAL , UNSP, UNSP TRIMESTER Status: Acute Current Visit: Yes (2) Encounter for full-term uncomplicated delivery SNOMED Code(s): 652358638 Code(s): O80 - ENCOUNTER FOR FULL-TERM UNCOMPLICATED DELIVERY Status: Acute Priority: High Current Visit: Yes - Problem List Review Problem List Initiated/Reviewed/Updated: Yes - My Orders Last 24 Hours: My Active Orders 05/07/21 14:17 May Shower [RC] ASDIRECTED Notify Provider [RC] PRN Up ad Honey [RC] ASDIRECTED Vital Signs [RC] PER UNIT ROUTINE Butorphanol [Stadol] 1 mg IVPUSH Q1H PRN Carboprost Tromethamine [Hemabate DS] 250 mcg IM ASDIRECTED PRN Lidocaine 1% [Xylocaine 1%] 50 ml INJECT ONETIME PRN Methylergonovine [Methergine] 0.2 mg IM ASDIRECTED PRN Nalbuphine [Nubain] 10 mg IVPUSH Q1H PRN Ondansetron [Zofran] 4 mg IVPUSH Q4H PRN Sodium Chloride 0.9% [Normal Saline] 10 ml IV ASDIRECTED PRN Sodium Chloride 0.9% [Saline Flush] 10 ml FLUSH ASDIRECTED PRN Sodium Chloride 0.9% [Saline Flush] 2.5 ml FLUSH ASDIRECTED PRN Tranexamic Acid [Cyklokapron] 1,000 mg Sodium Chloride 0.9% [Normal Saline] 100 ml IV ONETIME Water For Irrigation,Sterile [Sterile Water for Irrigation] 1,000 ml IRR ASDIRECTED PRN miSOPROStoL [Cytotec] 200 mcg PO ONETIME PRN Scalp Electrode [WOMSER] Per Unit Routine Peripheral IV Insertion Adult [OM.PC] Routine Resuscitation Status Routine 05/07/21 14:23 Communication Order [RC] ASDIRECTED Communication Order [RC] ASDIRECTED Communication Order [RC] ASDIRECTED Notify Provider [RC] PRN Notify Provider [RC] PRN Notify Provider [RC] STAT Terbutaline [Brethine] 0.25 mg SUBCUT ASDIRECTED PRN 05/07/21 14:30 Lactated Ringers [Ringers, Lactated] 1,000 ml IV ASDIRECTED Oxytocin/0.9 % Sodium Chloride [Oxytocin 30 Unit in NS 0.9% 500 ML Premix] 30 unit in 500 ml IV TITRATE Oxytocin/0.9 % Sodium Chloride [Oxytocin 30 Unit in NS 0.9% 500 ML Premix] 30 unit in 500 ml IV TITRATE Medication Administration Instruction [OM.PC] Q3H 05/07/21 18:00 miSOPROStoL [Cytotec] 25 mcg PO Q4H PRN miSOPROStoL [Cytotec] 25 mcg VAG Q4H PRN 05/08/21 03:49 Acetaminophen [Tylenol Extra Strength] 1,000 mg PO Q4H PRN Acetaminophen [Tylenol Extra Strength] 500 mg PO Q4H PRN Benzocaine/Menthol [Dermoplast Pain Relief 20%-0.5% [place]] 78 gm TOP ASD IRECTED PRN Docusate Sodium [Colace] 100 mg PO Q12H PRN Ibuprofen [Motrin] 400 mg PO Q4H PRN Ibuprofen [Motrin] 800 mg PO Q6H PRN Lanolin [Lansinoh HPA] See Dose Instructions TOP ASDIRECTED PRN bisacodyL [Dulcolax] 10 mg RECTAL ONETIME PRN oxyCODONE 5 mg PO Q2H PRN witch Davide [Tucks] 1 pad TOP ASDIRECTED PRN 05/08/21 03:50 Patient Status [ADT] Routine May Shower [RC] ASDIRECTED Up ad Honey [RC] ASDIRECTED Vital Signs [RC] PER UNIT ROUTINE Assess Lochia [WOMSER] Per Unit Routine Assess Uterine Involution [WOMSER] Per Unit Routine Peripheral IV Discontinue [OM.PC] Routine 05/09/21 05:11 HEMOGLOBIN/HEMATOCRIT,HH [HEME] Timed - Plan Plan:: 20yo G2 now P1011 s/p uncomplicated vaginal delivery @39w1d [place] after unremarkable IOL. Mom and baby are doing well. P: Routine care
[2021-05-08] MEDS: Ibuprofen 800 MG Tab PO PRN (09:20)
[2021-05-08] MEDS: Docusate Sodium 100 MG Cap PO PRN (09:21)
--- NOTE | 2021-05-09 08:12 | PCM.PNPP ---
- General Info Date of Service: 05/09/21 Subjective Update: Patient doing well this morning, has no complaints. Functional Status: Reports: Pain Controlled, Tolerating Diet, Ambulating, Urinating - Review of Systems General: Reports: No Symptoms HEENT: Reports: No Symptoms Pulmonary: Reports: No Symptoms Cardiovascular: Reports: No Symptoms Gastrointestinal: Reports: No Symptoms Genitourinary: Reports: No Symptoms Musculoskeletal: Reports: No Symptoms Skin: Reports: No Symptoms Neurological: Reports: No Symptoms Psychiatric: Reports: No Symptoms - Patient Data Vital Signs - Most Recent: Last Vital Signs Temp 36.5 C 05/08/21 19:00 Pulse 63 05/08/21 19:00 Resp 18 05/08/21 19:00 BP 120/73 05/08/21 19:00 Pulse Ox 96 05/08/21 19:00 Weight - Most Recent: 66.678 kg Lab Results - Last 24 Hours: Laboratory Results - last 24 hr 05/09/21 Range/Units 05:59 Hgb 9.0 L (12.0-16.0) g/dL Hct 28.5 L (36.0-46.0) % Med Orders - Current: Current Medications Acetaminophen (Acetaminophen 500 Mg Tab) 500 mg PO Q4H PRN PRN Reason: Pain (mild 1-3) Acetaminophen (Acetaminophen 500 Mg Tab) 1,000 mg PO Q4H PRN PRN Reason: Pain (mild 1-3) Benzocaine/Menthol (Benzocaine/Menthol 20%-0.5% [place] 78 Gm Cannister) 78 gm TOP ASDIRECTED PRN PRN Reason: Perineal Comfort Measure Last Admin: 05/08/21 06:00 Dose: 1 canister Documented by: Bisacodyl (Bisacodyl 10 Mg Supp) 10 mg RECTAL ONETIME PRN PRN Reason: Constipation Butorphanol Tartrate (Butorphanol 1 Mg/Ml Sdv) 1 mg IVPUSH Q1H PRN PRN Reason: Pain (severe 7-10) Last Admin: 05/07/21 23:49 Dose: 1 mg Documented by: Carboprost Tromethamine (Carboprost Tromethamine 250 Mcg/1 Ml Amp) 250 mcg IM ASDIRECTED PRN PRN Reason: Post Hemorrhage Docusate Sodium (Docusate Sodium 100 Mg Cap) 100 mg PO Q12H PRN PRN Reason: Constipation Last Admin: 05/08/21 09:21 Dose: 100 mg Documented by: Emollient Ointment (Lanolin 100% Cream 7 Gm Tube) 0 gm TOP ASDIRECTED PRN PRN Reason: Sore Nipples Last Admin: 05/08/21 05:58 Dose: 1 tube Documented by: Lactated Ringer's (Ringers, Lactated) 1,000 mls @ 150 mls/hr IV ASDIRECTED YASSINE Last Admin: 05/08/21 00:03 Dose: 150 mls/hr Documented by: Oxytocin/Sodium Chloride (Oxytocin 30 Unit In Ns 0.9% 500 Ml Premix) 30 unit in 500 mls @ 500 mls/hr IV TITRATE YASSINE Tranexamic Acid 1,000 mg/ (Sodium Chloride) 110 mls @ 660 mls/hr IV ONETIME PRN PRN Reason: Bleeding Oxytocin/Sodium Chloride (Oxytocin 30 Unit In Ns 0.9% 500 Ml Premix) 30 unit in 500 mls @ 2 mls/hr IV TITRATE YASSINE; Protocol Last Admin: 05/07/21 19:21 Dose: 2 munits/min, 2 mls/hr Documented by: Ibuprofen (Ibuprofen 400 Mg Tab) 400 mg PO Q4H PRN PRN Reason: Pain (mild 1-3) Ibuprofen (Ibuprofen 800 Mg Tab) 800 mg PO Q6H PRN PRN Reason: Cramping Last Admin: 05/08/21 09:20 Dose: 800 mg Documented by: Lidocaine HCl (Lidocaine 1% 50 Ml Mdv) 50 ml INJECT ONETIME PRN PRN Reason: Laceration repair Methylergonovine Maleate (Methylergonovine 0.2 Mg/1 Ml Amp) 0.2 mg IM ASDIRECTED PRN PRN Reason: Post Hemorrhage Misoprostol (Misoprostol 200 Mcg Tab) 200 mcg PO ONETIME PRN PRN Reason: Post Hemorrhage Misoprostol (Misoprostol 25 Mcg (1/4 Of 100 Mcg) Tab) 25 mcg VAG Q4H PRN PRN Reason: Cervical Ripening Misoprostol (Misoprostol 25 Mcg (1/4 Of 100 Mcg) Tab) 25 mcg PO Q4H PRN PRN Reason: Cervical Ripening Nalbuphine HCl (Nalbuphine 10 Mg/1 Ml Vial) 10 mg IVPUSH Q1H PRN PRN Reason: Pain (severe 7-10) Ondansetron HCl (Ondansetron 4 Mg/2 Ml Sdv) 4 mg IVPUSH Q4H PRN PRN Reason: Nausea/Vomiting Oxycodone HCl (Oxycodone 5 Mg Tab) 5 mg PO Q2H PRN PRN Reason: Pain (severe 7-10) Sodium Chloride (Sodium Chloride 0.9% 10 Ml Syringe) 10 ml FLUSH ASDIRECTED PRN PRN Reason: Keep Vein Open Sodium Chloride (Sodium Chloride 0.9% 2.5 Ml Syringe) 2.5 ml FLUSH ASDIRECTED PRN PRN Reason: Keep Vein Open Sodium Chloride (Sodium Chloride 0.9% 20 Ml Sdv) 10 ml IV ASDIRECTED PRN PRN Reason: IV Use Sterile Water (Water For Irrigation,Sterile 1,000 Ml Container) 1,000 ml IRR ASDIRECTED PRN PRN Reason: delivery Terbutaline Sulfate (Terbutaline 1 Mg/Ml Sdv) 0.25 mg SUBCUT ASDIRECTED PRN PRN Reason: Tacysystole Witch Anastasiia (Witch Anastasiia Medicated Pads 40/Jar) 1 pad TOP ASDIRECTED PRN PRN Reason: comfort care Last Admin: 05/08/21 05:59 Dose: 1 tub Documented by: Discontinued Medications Lidocaine HCl (Lidocaine 1% 20 Ml Mdv) Confirm Administered Dose 20 ml .ROUTE .STK-MED ONE Stop: 05/08/21 03:33 Last Admin: 05/08/21 23:45 Dose: Not Given Documented by: Misoprostol (Misoprostol 25 Mcg (1/4 Of 100 Mcg) Tab) Confirm Administered Dose 50 mcg .ROUTE .STK-MED ONE Stop: 05/07/21 13:47 Last Admin: 05/07/21 14:20 Dose: 50 mcg Documented by: Misoprostol (Misoprostol 25 Mcg (1/4 Of 100 Mcg) Tab) 25 mcg PO ONETIME ONE Stop: 05/07/21 14:03 Last Admin: 05/07/21 14:04 Dose: 25 mcg Documented by: Misoprostol (Misoprostol 50 Mcg (1/2 Of 100 Mcg) Tab) 25 mcg VAG ONETIME ONE Stop: 05/07/21 14:03 Last Admin: 05/07/21 16:36 Dose: Not Given Documented by: Misoprostol (Misoprostol 50 Mcg (1/2 Of 100 Mcg) Tab) 25 mcg VAG ONETIME ONE Stop: 05/07/21 14:14 Last Admin: 05/07/21 14:00 Dose: 25 mcg Documented by: Promethazine HCl (Promethazine 25 Mg/Ml Sdv) 25 mg IM ONETIME ONE Stop: 05/07/21 23:36 Last Admin: 05/08/21 19:38 Dose: Not Given Documented by: - Infant Interaction Infant Disposition, : [place] in Room with Family Interaction: Holding Infant Infant Feeding: Bottle Fed , Breastfed Infant; Nursed Well Support Person: - Recovery Exam Fundal Tone: Firm Fundal Level: 3 Fingerbreadths Below Umbilicus Fundal Placement: Midline Lochia Amount: Scant Lochia Color: Rubra/Red Perineum Description: Intact, Minimal Bruising/Swelling Other Perinuem Description: First degree laceration. Bladder Status: Voiding Urinary Elimination: Voided - Exam General: Alert, Oriented Neck: Supple Lungs: Normal Respiratory Effort GI/Abdominal Exam: Soft, Non-Tender, No Distention Extremities: Non-Tender, No Pedal Edema Skin: Warm, Dry, Intact Neurological: No New Focal Deficit Psy/Mental Status: Alert, Normal Affect, Normal Mood - Problem List & Annotations (1) Vaginal delivery SNOMED Code(s): 405801668 Code(s): O80 - ENCOUNTER FOR FULL-TERM UNCOMPLICATED DELIVERY Status: Acute Current Visit: Yes - Problem List Review Problem List Initiated/Reviewed/Updated: Yes - Assessment Assessment:: 20yo s/p , PPD#1 - Plan Plan:: Continue routine cares. Plan discharge home today. Reviewed discharge precautions/instructions. All questions answered.
[2021-05-09] MEDS: Docusate Sodium 100 MG Cap PO PRN ×2 (08:54→21:28)
[2021-05-10] MEDS: Ibuprofen 800 MG Tab PO PRN (06:32)
[2021-05-10] MEDS: Docusate Sodium 100 MG Cap PO PRN (09:36)
== END 2021-05-10 12:51 | disposition home or self-care (01) | DRG 807 ==
LOC: MW.OB 03:24 → INTOOBSV 13:16 → OBSVTOIN 13:16 → MW.OB 05-08 07:00
PROVIDERS: ADMIT Obstetrics & Gynecology Obstetrics; ATTEND Obstetrics & Gynecology Obstetrics
PROC: 10E0XZZ Delivery of Products of Conception, External Approach (ICD-10-PCS; principal; 2021-05-08)
DX: O70.0 First degree perineal laceration during delivery (principal); Z37.0 Single live birth; Z3A.39 39 weeks gestation of pregnancy
CPT/HCPCS: 36415; 59025; 59409; 85014; 85018; 85027; 86592; 86850; 86900; 86901; A9270-GY; J0595; J2590; J7120

== ENCOUNTER 2022-09-06 18:14 | Emergency (ER) | payer SELFPAY ==
[2022-09-06] MEDS ORDERED: Sodium Chloride 0.9% 1,000 ML IV ONE (18:35)
[2022-09-06 19:14] LABS: CARBON DIOXIDE,CO2 24.5 mmol/L (21.0-32.0); POTASSIUM,K 3.8 mmol/L (3.5-5.1)
[2022-09-06] MEDS ORDERED: traMADol 50 MG Tab PO ONE (20:12)
== END 2022-09-06 20:23 | disposition home or self-care (01) ==
LOC: MW.ED 18:14
DX: R07.89 Other chest pain (principal); Z91.013 Allergy to seafood
CPT/HCPCS: 36415; 71046; 80053; 81003; 81025; 83690; 85025; 96360; 99284; A9270; J7030

== ENCOUNTER 2024-09-15 19:30 | Inpatient (IN) | payer BC ==
[2024-09-15] MEDS ORDERED: Sodium Chloride 0.9% 2.5 ML Syringe FLUSH PRN (19:41)
[2024-09-15] MEDS ORDERED: Lidocaine 1% 50 ML MDV INJECT PRN (19:41)
[2024-09-15] MEDS ORDERED: Water For Irrigation,Sterile 1,000 ML Container IRR PRN (19:41)
[2024-09-15] MEDS ORDERED: Sodium Chloride 0.9% 10 ML Syringe FLUSH PRN (19:41)
[2024-09-15] MEDS ORDERED: Sodium Chloride 0.9% 20 ML SDV IV PRN (19:41)
[2024-09-15] MEDS ORDERED: Ondansetron 4 MG/2 ML SDV IVPUSH PRN (19:41)
[2024-09-15] MEDS ORDERED: Butorphanol 1 MG/ML SDV IVPUSH PRN (19:41)
[2024-09-15] MEDS ORDERED: Methylergonovine 0.2 MG/1 ML Amp IM PRN (19:41)
[2024-09-15] MEDS ORDERED: Carboprost Tromethamine 250 MCG/1 mL Vial IM PRN (19:41)
[2024-09-15] MEDS ORDERED: Misoprostol 200 MCG Tab PO PRN (19:41)
[2024-09-15] MEDS ORDERED: Lactated Ringers 1,000 ML IV SCH (19:45)
[2024-09-15 20:13] LABS: HEMATOCRIT 35.1 % (37.0-47.0); HEMOGLOBIN 11.8 g/dL (12.0-16.0); MEAN CORPUSCULAR HEMOGLOBIN 28.6 pg (28.0-32.0); MEAN CORPUSCULAR HGB CONC 33.6 g/dL (32.0-36.0); MEAN PLATELET VOLUME 12.4 fL (9.4-12.3); PLATELET COUNT,PLT 160 K/uL (150-400); RED BLOOD CELL COUNT 4.13 M/uL (4.10-5.30); WHITE BLOOD CELL COUNT,WBC 9.77 K/uL (3.9-11.3)
[2024-09-15] MEDS: Oxytocin/0.9 % Sodium Chloride 30 UNIT/500 ML BAG IV SCH (21:15)
[2024-09-15] MEDS ORDERED: Ibuprofen 800 MG Tab PO PRN (22:18)
[2024-09-15] MEDS ORDERED: Docusate Sodium 100 MG Cap PO PRN (22:18)
[2024-09-15] MEDS: Acetaminophen 500 MG Tab PO PRN (23:09)
[2024-09-15] MEDS: Benzocaine/Menthol 20%-0.5% Spray 78 GM Cannister TOP PRN (23:11)
[2024-09-15] MEDS: Witch Hazel Medicated Pads 40/Jar TOP PRN (23:11)
[2024-09-15] MEDS: Lanolin 100% Cream 7 GM Tube TOP PRN (23:12)
[2024-09-16 06:07] LABS: HEMATOCRIT 34.5 % (37.0-47.0); HEMOGLOBIN 11.1 g/dL (12.0-16.0)
== END 2024-09-17 00:22 | disposition home or self-care (01) | DRG 560 ==
LOC: MW.OBCHECK 19:30 → MW.OB 19:42 → OBSVTOIN 22:18 → MW.OB 23:33
PROVIDERS: ADMIT Obstetrics & Gynecology Obstetrics; ATTEND Obstetrics & Gynecology Obstetrics
PROC: 10E0XZZ Delivery of Products of Conception, External Approach (ICD-10-PCS; principal; 2024-09-15)
PROC: 0HQ9XZZ Repair Perineum Skin, External Approach (ICD-10-PCS; 2024-09-15)
DX: O99.344 Other mental disorders complicating childbirth (principal); F41.9 Anxiety disorder, unspecified; Z37.0 Single live birth; O70.0 First degree perineal laceration during delivery; Z91.040 Latex allergy status; Z3A.37 37 weeks gestation of pregnancy; Z79.899 Other long term (current) drug therapy; F32.A Depression, unspecified
CPT/HCPCS: 36415; 59025; 59409; 85014; 85018; 85027; 86592; 86850; 86900; 86901; A9270-GY; J2590